=== PATIENT | female | born 1970 | race Caucasian/White ===

== ENCOUNTER 2025-01-11 01:28 | Day surgery (SDC) | payer OTHER | END 2025-01-11 23:00 | disposition home or self-care (01) | LOC: WOUND 01:28 | DX: E11.621 Type 2 diabetes mellitus with foot ulcer (principal); L97.522 Non-pressure chronic ulcer of other part of left foot with fat layer exposed; E11.51 Type 2 diabetes mellitus with diabetic peripheral angiopathy without gangrene; I70.222 Atherosclerosis of native arteries of extremities with rest pain, left leg; E11.21 Type 2 diabetes mellitus with diabetic nephropathy; I10 Essential (primary) hypertension; Z79.4 Long term (current) use of insulin; Z79.84 Long term (current) use of oral hypoglycemic drugs; Z87.891 Personal history of nicotine dependence; Z95.5 Presence of coronary angioplasty implant and graft; Z88.2 Allergy status to sulfonamides; Z90.49 Acquired absence of other specified parts of digestive tract | CPT/HCPCS: G0463 ==

== ENCOUNTER → 2025-01-18 | Day surgery (SDC) | payer OTHER | LOC: WOUND 03:04 | DX: T25.222A Burn of second degree of left foot, initial encounter (principal); X08.8XXA Exposure to other specified smoke, fire and flames, initial encounter; E11.621 Type 2 diabetes mellitus with foot ulcer; L97.522 Non-pressure chronic ulcer of other part of left foot with fat layer exposed; E11.51 Type 2 diabetes mellitus with diabetic peripheral angiopathy without gangrene; I70.222 Atherosclerosis of native arteries of extremities with rest pain, left leg; E11.21 Type 2 diabetes mellitus with diabetic nephropathy; E11.40 Type 2 diabetes mellitus with diabetic neuropathy, unspecified; I10 Essential (primary) hypertension ==

== ENCOUNTER 2025-01-25 02:34 | Day surgery (SDC) | payer OTHER ==
[2025-01-25] MEDS ORDERED: ALBU90OI INH (13:39)
[2025-01-25] MEDS ORDERED: ASPIR 8181 M1 PO (13:39)
[2025-01-25] MEDS ORDERED: BUPR150ER PO (13:40)
[2025-01-25] MEDS ORDERED: PHARBEDRYL PO (13:40)
[2025-01-25] MEDS ORDERED: EZET10 PO (13:41)
[2025-01-25] MEDS ORDERED: ERGO50000 PO (13:41)
[2025-01-25] MEDS ORDERED: FLUOXETINE HCL20 M1 PO (13:42)
[2025-01-25] MEDS ORDERED: GABA100 PO (13:42)
[2025-01-25] MEDS ORDERED: HYDPAM25 PO (13:45)
[2025-01-25] MEDS ORDERED: INSULANI INH (13:46)
[2025-01-25] MEDS ORDERED: [UNRECOGNIZED DRUG - OTHER] INJ (13:48)
[2025-01-25] MEDS ORDERED: LEVOTHYROXINE75 MC9 PO (13:49)
[2025-01-25] MEDS ORDERED: PIOG15 PO (13:49)
[2025-01-25] MEDS ORDERED: ROPI1 PO (13:49)
[2025-01-25] MEDS ORDERED: STEGLATRO5 MG PO (13:50)
[2025-01-25] MEDS ORDERED: Crestor40 MG PO (13:50)
[2025-01-26] MEDS ORDERED: OZEMPIC0.25 MG/02 SC (07:34)
[2025-01-26] MEDS ORDERED: LASIX20 M2 PO (07:36)
[2025-01-26] MEDS ORDERED: POTCHL20ER PO (07:36)
[2025-01-26] MEDS ORDERED: POTA8 PO (07:37)
== END 2025-01-25 23:00 | disposition home or self-care (01) ==
LOC: WOUND 02:34
DX: E11.621 Type 2 diabetes mellitus with foot ulcer (principal); L97.422 Non-pressure chronic ulcer of left heel and midfoot with fat layer exposed; L97.522 Non-pressure chronic ulcer of other part of left foot with fat layer exposed; L97.421 Non-pressure chronic ulcer of left heel and midfoot limited to breakdown of skin; T25.222A Burn of second degree of left foot, initial encounter; E11.21 Type 2 diabetes mellitus with diabetic nephropathy; E11.51 Type 2 diabetes mellitus with diabetic peripheral angiopathy without gangrene; I70.222 Atherosclerosis of native arteries of extremities with rest pain, left leg; E11.40 Type 2 diabetes mellitus with diabetic neuropathy, unspecified; I10 Essential (primary) hypertension; X19.XXXA Contact with other heat and hot substances, initial encounter

== ENCOUNTER 2025-01-26 07:01 | Day surgery (SDC) | payer OTHER ==
[2025-01-26] VITALS (7 sets, daily range): BP systolic 125–170; BP diastolic 64–106
[~2025-01-26] VITALS: Ht 182.9 cm; Wt 134.7 kg
[~2025-01-26 07:01] MED LIST: ALBU90OI INH; ASPIR 8181 M1 PO; BUPR150ER PO; Crestor40 MG PO; ERGO50000 PO; EZET10 PO; FLUOXETINE HCL20 M1 PO; GABA100 PO; HYDPAM25 PO; INSULANI INH; LEVOTHYROXINE75 MC9 PO; PHARBEDRYL PO; PIOG15 PO; ROPI1 PO; STEGLATRO5 MG PO; [UNRECOGNIZED DRUG - OTHER] INJ
[2025-01-26] MEDS ORDERED: OZEMPIC0.25 MG/02 SC (07:34)
[2025-01-26] MEDS ORDERED: POTCHL20ER PO (07:36)
[2025-01-26] MEDS ORDERED: LASIX20 M2 PO (07:36)
[2025-01-26] MEDS ORDERED: POTA8 PO (07:37)
[2025-01-26] MEDS ORDERED: NS 500 ML IV ONE (07:43)
[2025-01-26] MEDS ORDERED: NS 1,000 ML IV ONE ×2 (07:43→08:20)
[2025-01-26] MEDS ORDERED: Heparin Sodium 1000 Units/ML 10ML MDV ONE ×2 (07:43→08:20)
[2025-01-26 07:44] LABS: BASOPHILS ABSOLUTE AUTO 0.08 K/mm3 (0.00-0.23); BASOPHILS PERCENT AUTO 1 % (0-2); EOSINOPHILS ABSOLUTE AUTO 0.27 K/mm3 (0.00-0.68); EOSINOPHILS PERCENT AUTO 3 % (0-6); Hematocrit 44.5 % (33.0-51.0); Hemoglobin 14.6 g/dL (11.5-16.0); IMMATURE GRAN ABSOLUTE AUTO 0.03 K/mm3 (0.00-0.10); IMMATURE GRAN PERCENT AUTO 0 % (0-1); LYMPHOCYTES ABSOLUTE AUTO 3.34 K/mm3 (0.84-5.20); LYMPHOCYTES PERCENT AUTO 31 % (21-46); MONOCYTES ABSOLUTE AUTO 0.77 K/mm3 (0.16-1.47); MONOCYTES PERCENT AUTO 7 % (4-13); Mean Corpuscular HGB 27.9 pg (26.0-34.0); Mean Corpuscular HGB Conc 32.8 g/dL (31.5-36.5); Mean Corpuscular Volume 85 fL (80-100); Mean Platelet Volume 9.3 fL (9.1-12.4); NEUTROPHILS ABSOLUTE AUTO 6.34 K/mm3 (1.96-9.15); NEUTROPHILS PERCENT AUTO 59 % (41-73); Platelet Count 258 K/mm3 (150-400); RDW Coefficient Variation 13.2 % (11.7-14.2); RDW Standard Deviation 40.7 fL (35.1-46.3); Red Blood Cell Count 5.24 M/mm3 (3.80-5.20); White Blood Cell Count 10.83 K/mm3 (4.00-11.30)
[2025-01-26 07:58] LABS: International Normalized Ratio 1.34
[2025-01-26 07:59] LABS: Calcium, Blood 8.5 mg/dL (8.5-10.1); Creatinine, Blood 1.41 mg/dL (0.40-1.00); Potassium, Blood 3.8 mmol/L (3.5-5.5)
[2025-01-26] MEDS ORDERED: Midazolam HCl 1MG / ML 2ML Vial ONE ×2 (08:49→09:50)
[2025-01-26] MEDS ORDERED: FentaNYL Citrate 50 MCG/ML 2 ML Injection ONE ×3 (08:49→11:23)
[2025-01-26] MEDS ORDERED: Nitroglycerin 2 MG/20 ML BTL ONE (09:25)
[2025-01-26] MEDS ORDERED: Alteplase Recombinant 2 MG / Vial ONE (09:51)
[2025-01-26] MEDS ORDERED: HydrALAZINE HCl 20 MG / ML 1ML Vial ONE (10:12)
[2025-01-26] MEDS ORDERED: FentaNYL Citrate 50 MCG/ML 2 ML Injection IV PRN (11:25)
--- NOTE | 2025-01-26 11:27 | NUR ---
ARRIVES PAINFUL FROM POST-OP, LEG INTACT AND NO CONCERNS, GOOD PULSES WITH DOPPLER PREOP NOTED RIGHT LEG WHICH IS PAINFUL TO PATIENT WELL, VSS, HOWEVER PAIN 10/10 RIGHT LEG, OBTAINED ORDER FROM DR. FINNEY FOR 50 FENT NOW AND IN AN HOUR IF PAIN PERSISTS, PAIN REMAINED 10/10, GIVEN 50 FENT AND NOW PATIENT SLEEPING, SITE REMAINS INTACT, NO CONCERNS, WILL CONTINUE TO MONITOR PAIN RESPONSE AND SITE.
--- NOTE | 2025-01-26 13:15 | NUR ---
SITE REMAINED INTACT AND PATIENT AWOKE WITH PAIN WELL CONTROLLED 11/21, DISCUSS TAKING TYLENOL AT HOME IF NEEDED, VS REMAINED STABLE AND SITE REMAINED INTACT, AMBULATED TO RESTROOM AFTER SITTING UP AND HAVING COFFEE AND UPON RETURN S/O ARRIVED, DISCUSSED D/C INSTRUCTIONS AND RETURN IF CONCERNS, FOLLOWING UP HERE ON FOR RLE, AND RESUMING MEDS, DENIED CONCERNS OR QUESTIONS AT THAT TIME. IV REMOVED, PATIENT DRESSED, TAKEN BY WHEELCHAIR ACCOMPANIED BY THIS RN, DISCHARGED AT 1250.
== END 2025-01-26 12:50 | disposition home or self-care (01) ==
LOC: MHTC 07:01
PROVIDERS: Radiology Diagnostic Radiology
DX: E11.51 Type 2 diabetes mellitus with diabetic peripheral angiopathy without gangrene (principal); I70.223 Atherosclerosis of native arteries of extremities with rest pain, bilateral legs; E78.5 Hyperlipidemia, unspecified; I10 Essential (primary) hypertension; F31.81 Bipolar II disorder; I25.10 Atherosclerotic heart disease of native coronary artery without angina pectoris; G47.33 Obstructive sleep apnea (adult) (pediatric); Z87.891 Personal history of nicotine dependence; Z88.1 Allergy status to other antibiotic agents; Z91.012 Allergy to eggs; Z79.899 Other long term (current) drug therapy; Z79.4 Long term (current) use of insulin
CPT/HCPCS: 36415; 37220; 37228; 37232; 75625; 75716; 75774; 76937; 80048; 85025; 85610; 99152; 99153; C1725; C1760; C1769; C1887; C1894; J0360; J1644; J2250; J2997; J3010; J7030; J7050; Q9967

== ENCOUNTER → 2025-02-01 | Day surgery (SDC) | payer OTHER ==
[~2025-02-01] MED LIST changes: +LASIX20 M2 PO; +OZEMPIC0.25 MG/02 SC; +POTA8 PO; +POTCHL20ER PO
== END ==
LOC: WOUND 01:44
DX: E11.621 Type 2 diabetes mellitus with foot ulcer (principal); L97.422 Non-pressure chronic ulcer of left heel and midfoot with fat layer exposed; L97.522 Non-pressure chronic ulcer of other part of left foot with fat layer exposed; E11.622 Type 2 diabetes mellitus with other skin ulcer; T25.222A Burn of second degree of left foot, initial encounter; L02.413 Cutaneous abscess of right upper limb; E11.21 Type 2 diabetes mellitus with diabetic nephropathy; E11.51 Type 2 diabetes mellitus with diabetic peripheral angiopathy without gangrene; I70.222 Atherosclerosis of native arteries of extremities with rest pain, left leg; I10 Essential (primary) hypertension
CPT/HCPCS: A6213; G0463

== ENCOUNTER → 2025-02-07 | Day surgery (SDC) | payer OTHER ==
[~2025-02-07] MED LIST changes: +Lidocaine HCl 4% Cream 5 GM ONE
== END ==
LOC: WOUND 03:45
DX: E11.621 Type 2 diabetes mellitus with foot ulcer (principal); E11.622 Type 2 diabetes mellitus with other skin ulcer; T25.222D Burn of second degree of left foot, subsequent encounter; X10.0XXD Contact with hot drinks, subsequent encounter; L97.529 Non-pressure chronic ulcer of other part of left foot with unspecified severity; E11.51 Type 2 diabetes mellitus with diabetic peripheral angiopathy without gangrene; I70.222 Atherosclerosis of native arteries of extremities with rest pain, left leg; L02.413 Cutaneous abscess of right upper limb; E11.21 Type 2 diabetes mellitus with diabetic nephropathy; I10 Essential (primary) hypertension
CPT/HCPCS: A6213; A9270

== ENCOUNTER 2025-02-16 01:16 | Day surgery (SDC) | payer OTHER ==
[~2025-02-16 01:16] MED LIST changes: -Lidocaine HCl 4% Cream 5 GM ONE
[2025-02-16] MEDS ORDERED: Lidocaine HCl 4% Cream 5 GM ONE (13:00)
== END 2025-02-16 23:00 | disposition home or self-care (01) ==
LOC: WOUND 01:16
DX: E11.621 Type 2 diabetes mellitus with foot ulcer (principal); E11.622 Type 2 diabetes mellitus with other skin ulcer; T25.222D Burn of second degree of left foot, subsequent encounter; L02.413 Cutaneous abscess of right upper limb; E11.21 Type 2 diabetes mellitus with diabetic nephropathy; E11.51 Type 2 diabetes mellitus with diabetic peripheral angiopathy without gangrene; I70.222 Atherosclerosis of native arteries of extremities with rest pain, left leg; I10 Essential (primary) hypertension
CPT/HCPCS: A6213; A9270

== ENCOUNTER 2025-03-02 01:44 | Day surgery (SDC) | payer OTHER ==
[2025-03-03] MEDS ORDERED: CLOP75 PO (11:39)
== END 2025-03-02 23:00 | disposition home or self-care (01) ==
LOC: WOUND 01:44
DX: E11.621 Type 2 diabetes mellitus with foot ulcer (principal); E11.622 Type 2 diabetes mellitus with other skin ulcer; I70.222 Atherosclerosis of native arteries of extremities with rest pain, left leg; L97.422 Non-pressure chronic ulcer of left heel and midfoot with fat layer exposed; T25.222D Burn of second degree of left foot, subsequent encounter; X10.0XXD Contact with hot drinks, subsequent encounter; L02.413 Cutaneous abscess of right upper limb; E11.21 Type 2 diabetes mellitus with diabetic nephropathy; E11.51 Type 2 diabetes mellitus with diabetic peripheral angiopathy without gangrene
CPT/HCPCS: A6213

== ENCOUNTER 2025-03-03 06:37 | Day surgery (SDC) | payer OTHER ==
[2025-03-03] VITALS (9 sets, daily range): BP systolic 116–166; BP diastolic 64–89
[~2025-03-03] VITALS: Ht 172.7 cm; Wt 135.0 kg
[2025-03-03] MEDS ORDERED: NS 500 ML IV ONE (07:35)
[2025-03-03] MEDS ORDERED: Nitroglycerin 2 MG/20 ML BTL ONE (07:35)
[2025-03-03] MEDS ORDERED: NS 1,000 ML IV ONE ×2 (07:35→08:02)
[2025-03-03] MEDS ORDERED: Heparin Sodium 1000 Units/ML 10ML MDV ONE (07:35)
[2025-03-03 07:59] LABS: BASOPHILS ABSOLUTE AUTO 0.04 K/mm3 (0.00-0.23); BASOPHILS PERCENT AUTO 1 % (0-2); EOSINOPHILS ABSOLUTE AUTO 0.22 K/mm3 (0.00-0.68); EOSINOPHILS PERCENT AUTO 3 % (0-6); Hematocrit 42.4 % (33.0-51.0); Hemoglobin 13.9 g/dL (11.5-16.0); IMMATURE GRAN ABSOLUTE AUTO 0.02 K/mm3 (0.00-0.10); IMMATURE GRAN PERCENT AUTO 0 % (0-1); LYMPHOCYTES ABSOLUTE AUTO 3.11 K/mm3 (0.84-5.20); LYMPHOCYTES PERCENT AUTO 37 % (21-46); MONOCYTES PERCENT AUTO 8 % (4-13); Mean Corpuscular HGB 27.6 pg (26.0-34.0); Mean Corpuscular HGB Conc 32.8 g/dL (31.5-36.5); Mean Corpuscular Volume 84 fL (80-100); Mean Platelet Volume 9.4 fL (9.1-12.4); NEUTROPHILS ABSOLUTE AUTO 4.37 K/mm3 (1.96-9.15); NEUTROPHILS PERCENT AUTO 52 % (41-73); Platelet Count 204 K/mm3 (150-400); RDW Coefficient Variation 13.7 % (11.7-14.2); RDW Standard Deviation 41.8 fL (35.1-46.3); Red Blood Cell Count 5.04 M/mm3 (3.80-5.20); White Blood Cell Count 8.46 K/mm3 (4.00-11.30)
[2025-03-03] MEDS ORDERED: FentaNYL Citrate 50 MCG/ML 2 ML Injection ONE ×2 (08:01→09:01)
[2025-03-03] MEDS ORDERED: Midazolam HCl 1MG / ML 2ML Vial ONE ×2 (08:01→08:46)
[2025-03-03 08:24] LABS: Bun/Creatinine Ratio 18.1 (12.0-20.0); Creatinine, Blood 1.27 mg/dL (0.40-1.00)
--- NOTE | 2025-03-03 09:30 | NUR ---
PATIENT ARRIVED BACK TO RECOVERY ROOM. HOB FLAT. LEFT GROIN SITE C/D/I SOFT/NONTENDER, NO EVIDENCE OF BLEEDING. VSS ON RA. PATIENT RESPONDING TO NAME, RESTING COMFORTABLY.
--- NOTE | 2025-03-03 10:00 | NUR ---
NEW MEDICATION CALLED INTO [facility]. PATIENT RESTING COMFORTABLY. LEFT GROIN SITE C/D/I SOFT/NONTENDER, NO EVIDENCE OF BLEEDING. LE PULSES PRESENT. VSS.
--- NOTE | 2025-03-03 10:15 | NUR ---
HOB ELEVATED 30 DEGREES. LEFT GROIN SITE C/D/I SOFT/NONTENDER, NO EVIDENCE OF BLEEDING. DISTAL PULSES PRESENT. VSS. PATIENT RESTING COMFORTABLY.
[2025-03-03] MEDS ORDERED: Acetaminophen 325 MG TABLET ONE (11:01)
--- NOTE | 2025-03-03 11:20 | NUR ---
PATIENT SITTING UPRIGHT IN BED, TOLERATING PO INTAKE WELL. LEFT GROIN SITE C/D/I SOFT/NONTENDER, NO EVIDENCE OF BLEEDING. LE PULSES PRESENT. VSS.
--- NOTE | 2025-03-03 11:35 | NUR ---
PATIENT AMBULATING TO RESTROOM WITHOUT DIFFIUCLTY. LEFT GROIN SITE C/D/I SOFT/NONTENDER, NO EVIDENCE OF BLEEDING. DISCHARGE INSTURCTIONS REVIEWED WITH PATIENT, ALL QUESTIONS WERE ANSWERED. VSS.
[2025-03-03] MEDS ORDERED: CLOP75 PO (11:39)
--- NOTE | 2025-03-03 12:00 | NUR ---
PATIENT DISCHARGED HOME AT THIS TIME. ALL PATIENT BELONGINGS AND PAPERWORK LEFT WITH PATIENT. PIV REMOVED WITHOUT DIFFIUCLTY, CATHETER INTACT. PATIENT WHEELED TO HOSPITAL ENTRANCE AND SPOUSE ABLE TO PROVIDE TRANSPORTATION HOME.
== END 2025-03-03 12:00 | disposition home or self-care (01) ==
LOC: MHTC 06:37
PROVIDERS: Radiology Diagnostic Radiology
DX: E11.51 Type 2 diabetes mellitus with diabetic peripheral angiopathy without gangrene (principal); I70.222 Atherosclerosis of native arteries of extremities with rest pain, left leg; S91.102A Unspecified open wound of left great toe without damage to nail, initial encounter; X58.XXXA Exposure to other specified factors, initial encounter; I25.10 Atherosclerotic heart disease of native coronary artery without angina pectoris; E78.5 Hyperlipidemia, unspecified; F31.9 Bipolar disorder, unspecified; G47.33 Obstructive sleep apnea (adult) (pediatric); Z79.82 Long term (current) use of aspirin; Z79.4 Long term (current) use of insulin; Z79.890 Hormone replacement therapy; Z79.899 Other long term (current) drug therapy; Z87.891 Personal history of nicotine dependence; Z88.1 Allergy status to other antibiotic agents; Z91.012 Allergy to eggs
CPT/HCPCS: 37225; 75716; 75774; 76937; 80048; 85025; 99152; 99153; A9270; C1714; C1760; C1769; C1887; C1894; C2623; J1644; J2250; J3010; J7030; J7050; Q9967

== ENCOUNTER 2025-03-15 00:44 | Day surgery (SDC) | payer OTHER ==
[~2025-03-15 00:44] MED LIST changes: +CLOP75 PO
[2025-03-15] MEDS ORDERED: Lidocaine HCl 4% Cream 5 GM ONE (13:11)
== END 2025-03-15 23:00 | disposition home or self-care (01) ==
LOC: WOUND 00:44
DX: T25.222D Burn of second degree of left foot, subsequent encounter (principal); E11.621 Type 2 diabetes mellitus with foot ulcer; E11.622 Type 2 diabetes mellitus with other skin ulcer; L02.413 Cutaneous abscess of right upper limb; E11.21 Type 2 diabetes mellitus with diabetic nephropathy; E11.51 Type 2 diabetes mellitus with diabetic peripheral angiopathy without gangrene; I70.222 Atherosclerosis of native arteries of extremities with rest pain, left leg
CPT/HCPCS: A6213; A9270; G0463